=== PATIENT | female | born 1970 | race Two or more races ===

== ENCOUNTER 2018-05-29 09:40 | Day surgery (SDC) | payer OTHER ==
[~2018-05-29 09:40] MED LIST: ADVAIR HFA 230/12 GM IH; CUTIVATE30 GM TOP; TYLENOL EXTRA500 MG PO
[2018-05-29] MEDS ORDERED: NAPROXEN SODIU550 M1 PO (16:57)
== END 2018-05-29 20:00 | disposition home or self-care (01) ==
LOC: CIR.AMB 09:40
DX: N84.0 Polyp of corpus uteri (principal); R87.622 Low grade squamous intraepithelial lesion on cytologic smear of vagina (LGSIL)

== ENCOUNTER 2020-03-03 11:00 | Inpatient (IN) | payer OTHER ==
[~2020-03-03] VITALS: Ht 157.5 cm; Wt 63.5 kg
[~2020-03-03 11:00] MED LIST changes: +NAPROXEN SODIU550 M1 PO
[2020-03-03] MEDS ORDERED: SINGULAIR10 MG PO (13:31)
[2020-03-03] MEDS ORDERED: ZYRTEC10 M3 PO (13:32)
[2020-03-03] MEDS ORDERED: CLONAZEPAM1 MG PO (13:32)
[2020-03-03] MEDS ORDERED: SERTRALINE PO (13:34)
[2020-03-03] MEDS ORDERED: ESTAZOLAM2 MG PO (13:35)
[2020-03-03] MEDS ORDERED: ESOMEPRA PO (13:36)
[2020-03-03] MEDS ORDERED: CALCIUM PO (13:36)
[2020-03-03] MEDS ORDERED: [UNRECOGNIZED DRUG - OTHER] PO (13:38)
[2020-03-03] MEDS ORDERED: GABAPEN (13:39)
[2020-03-03] MEDS ORDERED: ACTICAL PO (13:40)
[2020-03-03] MEDS ORDERED: GABAPENTI PO (13:40)
[2020-03-03] MEDS ORDERED: DAILY MULTIPLE1 EAC2 PO (13:41)
[2020-03-03] MEDS ORDERED: VITAMIN D PO (13:42)
[2020-03-10] MEDS ORDERED: DICLOFENAC SOD100 GM (13:27)
[2020-03-10] MEDS ORDERED: CALCIUM CARBON600 MG (13:28)
[2020-03-10] MEDS ORDERED: MAXIMUM D3325 MCG (13:28)
[2020-03-10] MEDS ORDERED: SERTRALINE HCL100 MG (13:28)
[2020-03-10] MEDS ORDERED: DICLOFENAC POTA50 MG (13:28)
[2020-03-10] MEDS ORDERED: ESOMEPRAZOLE MA40 MG (13:29)
[2020-03-10] MEDS ORDERED: GABAPENTIN600 MG (13:29)
[2020-03-10] MEDS ORDERED: GABAPENTIN300 M2 (13:29)
[2020-03-10] MEDS ORDERED: ACTICAL SOFTGE1 EACH (13:30)
[2020-03-12] MEDS ORDERED: PROTONIX40 MG PO (07:24)
[2020-03-12] MEDS ORDERED: OXYC1TAB9 PO (07:24)
== END 2020-03-12 09:11 | disposition home or self-care (01) | DRG 743 ==
LOC: OB/GYN 03-10 07:20 → O/R 03-10 07:20 → OB/GYN 03-10 15:40
PROVIDERS: ADMIT Obstetrics & Gynecology Gynecology; ATTEND Obstetrics & Gynecology Gynecology
PROC: 0UB70ZZ Excision of Bilateral Fallopian Tubes, Open Approach (ICD-10-PCS; 2020-03-10)
PROC: 0UT90ZZ Resection of Uterus, Open Approach (ICD-10-PCS; principal; 2020-03-10 12:45)
DX: N80.0 Endometriosis of uterus (principal); N72 Inflammatory disease of cervix uteri; N83.8 Other noninflammatory disorders of ovary, fallopian tube and broad ligament; N92.0 Excessive and frequent menstruation with regular cycle